=== PATIENT | male | born 1970 | race Caucasian/White ===

== ENCOUNTER 2023-01-31 17:10 | Inpatient (IN) | payer OTHER ==
[~2023-01-31] VITALS: Ht 175.3 cm; Wt 86.2 kg
[~2023-01-31 17:10] MED LIST: CEFUROXIME250 MG PO; FLOMAX0.4 MG PO; HYDROCODON-ACE1 EA11 PO; ONDANSETRON ODT4 MG PO
[2023-01-31] MEDS ORDERED: SODIUM CHLORIDE 0.9% 1000ML 1,000 ML IV STA (17:29)
[2023-01-31] MEDS ORDERED: ONDANSETRON HCL INJ 2MG/ML 2ML 2 MG/ML VIAL IV STA (17:34)
[2023-01-31 17:41] LABS: BASOPHILS # (AUTO) 0.1 (0.0-0.1); BASOPHILS % 0.4 % (0.0-1.0); EOSINOPHILS % 0.3 % (0.0-6.0); HEMATOCRIT 40.8 % (38.2-49.6); LYMPHOCYTES # (AUTO) 0.9 (1.0-3.2); LYMPHOCYTES % 5.5 % (18.0-39.1); MEAN CORPUSCULAR HEMOGLOBIN 30.3 pg (28-32); MEAN CORPUSCULAR HGB CONC 34.3 g/dL (31-35); MEAN CORPUSCULAR VOLUME 88.3 fL (81-99); MONOCYTES # (AUTO) 1.1 (0.2-0.8); NEUTROPHILS # (AUTO) 13.3 (2.1-6.9); NEUTROPHILS % 86.4 % (38.7-80.0); PLATELET COUNT 207 x10e3/uL (140-360); RED BLOOD COUNT 4.62 x10e6/uL (4.3-5.7); RED CELL DISTRIBUTION WIDTH 11.8 % (11.7-14.4)
[2023-01-31] MEDS ORDERED: Morphine 4mg INJECTION 4 MG/ML INJ IV ONE (17:45)
[2023-01-31 18:04] LABS: ALBUMIN 4.1 g/dL (3.5-5.0); ALBUMIN/GLOBULIN RATIO 1.2 (0.8-2.0); ANION GAP 15.4 mmol/L (8-16); CALCIUM 9.9 mg/dL (8.4-10.2); CREATININE, SERUM 1.81 mg/dL (0.72-1.25); POTASSIUM 4.4 mmol/L (3.5-5.1)
[2023-01-31] MEDS ORDERED: SODIUM CHLORIDE FLUSH 10 ML SYR INJ PRN (19:45)
[2023-01-31 20:05] VITALS: PULSE 90; RESP 20; O2SAT 98
[2023-01-31] MEDS: SODIUM CHLORIDE 0.9% 1000ML 1,000 ML IV SCH (20:50)
[2023-01-31] MEDS ORDERED: SIMETHICONE 80 MG CHEW PO PRN (22:30)
[2023-02-01] VITALS (12 sets, daily range): BP systolic 120–146; BP diastolic 83–98; PULSE 65–94; RESP 16–20; TEMP 98.1–98.8; O2SAT 65–99
[2023-02-01] MEDS: ONDANSETRON HCL INJ 2MG/ML 2ML 2 MG/ML VIAL IV PRN ×2 (00:21→13:03)
[2023-02-01] MEDS: Morphine 4mg INJECTION 4 MG/ML INJ IV PRN ×3 (00:22→21:14)
[2023-02-01 04:56] LABS: BASOPHILS # (AUTO) 0.1 (0.0-0.1); BASOPHILS % 0.5 % (0.0-1.0); EOSINOPHILS # (AUTO) 0.1 (0.0-0.4); EOSINOPHILS % 1.4 % (0.0-6.0); HEMATOCRIT 37.9 % (38.2-49.6); HEMOGLOBIN 12.6 g/dL (14.0-18.0); LYMPHOCYTES # (AUTO) 2.1 (1.0-3.2); LYMPHOCYTES % 21.8 % (18.0-39.1); MEAN CORPUSCULAR HEMOGLOBIN 30.4 pg (28-32); MEAN CORPUSCULAR HGB CONC 33.2 g/dL (31-35); MEAN CORPUSCULAR VOLUME 91.3 fL (81-99); MONOCYTES # (AUTO) 1.2 (0.2-0.8); MONOCYTES % 12.3 % (4.4-11.3); NEUTROPHILS % 63.4 % (38.7-80.0); PLATELET COUNT 162 x10e3/uL (140-360); RED BLOOD COUNT 4.15 x10e6/uL (4.3-5.7); RED CELL DISTRIBUTION WIDTH 11.7 % (11.7-14.4)
[2023-02-01 05:16] LABS: ANION GAP 11.9 mmol/L (8-16); CALCIUM 8.9 mg/dL (8.4-10.2); CREATININE, SERUM 1.56 mg/dL (0.72-1.25); POTASSIUM 3.9 mmol/L (3.5-5.1)
[2023-02-01 05:52] LABS: ALBUMIN 3.3 g/dL (3.5-5.0); BILIRUBIN,DIRECT 0.2 mg/dL (0.0-0.5)
[2023-02-01] MEDS: SODIUM CHLORIDE 0.9% 1000ML 1,000 ML IV SCH ×3 (05:59→21:13)
[2023-02-01] MEDS ORDERED: ACETAMINOPHEN 325 MG TAB PO PRN (06:45)
[2023-02-01] MEDS: TAMSULOSIN HCL 0.4 MG CAP PO SCH (08:34)
[2023-02-01] MEDS: FAMOTIDINE 20 MG TAB PO SCH ×2 (08:34→16:25)
[2023-02-01 13:43] LABS: CLARITY,URINE CLEAR (CLEAR); COLOR,URINE YELLOW (YELLOW); KETONES,URINE NEGATIVE (NEGATIVE); LEUKOCYTE ESTERASE ,URINE NEGATIVE (NEGATIVE); NITRITE,URINE NEGATIVE (NEGATIVE); PROTEIN,URINE DIPSTICK NEGATIVE (NEGATIVE); RBC,URINE 0-5 /HPF (0-5); URINE UROBILINOGEN 0.2 mg/dL (0.2 - 1); WBC,URINE (MAN) 0-5 /HPF (0-5)
[2023-02-01] MEDS: MELATONIN 3 MG TAB PO PRN (21:14)
[2023-02-02] VITALS (7 sets, daily range): BP systolic 121–145; BP diastolic 65–91; PULSE 70–91; RESP 18–19; TEMP 98.2–99; O2SAT 96–99
[2023-02-02] MEDS: Morphine 4mg INJECTION 4 MG/ML INJ IV PRN ×2 (03:37→21:31)
[2023-02-02] MEDS: SODIUM CHLORIDE 0.9% 1000ML 1,000 ML IV SCH ×3 (04:42→21:31)
[2023-02-02 04:58] LABS: BASOPHILS # (AUTO) 0.1 (0.0-0.1); BASOPHILS % 0.8 % (0.0-1.0); EOSINOPHILS # (AUTO) 0.3 (0.0-0.4); EOSINOPHILS % 3.1 % (0.0-6.0); HEMATOCRIT 42.3 % (38.2-49.6); HEMOGLOBIN 13.8 g/dL (14.0-18.0); LYMPHOCYTES # (AUTO) 1.9 (1.0-3.2); LYMPHOCYTES % 20.6 % (18.0-39.1); MEAN CORPUSCULAR HEMOGLOBIN 30.5 pg (28-32); MEAN CORPUSCULAR HGB CONC 32.6 g/dL (31-35); MEAN CORPUSCULAR VOLUME 93.6 fL (81-99); MONOCYTES # (AUTO) 0.8 (0.2-0.8); MONOCYTES % 8.6 % (4.4-11.3); NEUTROPHILS # (AUTO) 5.9 (2.1-6.9); PLATELET COUNT 152 x10e3/uL (140-360); RED BLOOD COUNT 4.52 x10e6/uL (4.3-5.7); RED CELL DISTRIBUTION WIDTH 11.8 % (11.7-14.4)
[2023-02-02 05:20] LABS: CALCIUM 9.5 mg/dL (8.4-10.2); CREATININE, SERUM 1.64 mg/dL (0.72-1.25)
[2023-02-02] MEDS: FAMOTIDINE 20 MG TAB PO SCH ×2 (06:30→16:30)
[2023-02-02] MEDS: TAMSULOSIN HCL 0.4 MG CAP PO SCH (08:57)
[2023-02-02] MEDS: ONDANSETRON HCL INJ 2MG/ML 2ML 2 MG/ML VIAL IV PRN (21:30)
[2023-02-02] MEDS: MELATONIN 3 MG TAB PO PRN (21:31)
[2023-02-03] VITALS (8 sets, daily range): BP systolic 117–177; BP diastolic 77–94; PULSE 69–86; RESP 16–20; TEMP 97.8–98.5; O2SAT 95–99
[2023-02-03] MEDS: SODIUM CHLORIDE 0.9% 1000ML 1,000 ML IV SCH ×3 (04:43→20:05)
[2023-02-03] MEDS: TAMSULOSIN HCL 0.4 MG CAP PO SCH (09:07)
[2023-02-03] MEDS: FAMOTIDINE 20 MG TAB PO SCH ×2 (09:07→17:10)
[2023-02-03] MEDS: DOCUSATE SODIUM 100 MG CAP PO PRN ×2 (09:07→17:20)
[2023-02-03] MEDS: ACETAMINOPHEN/CODEINE 300MG - 30MG TAB PO PRN ×3 (10:36→20:05)
[2023-02-03 10:57] LABS: ANION GAP 14.6 mmol/L (8-16); CALCIUM 9.7 mg/dL (8.4-10.2); CREATININE, SERUM 1.7 mg/dL (0.72-1.25); POTASSIUM 4.6 mmol/L (3.5-5.1)
[2023-02-03] MEDS: Morphine 4mg INJECTION 4 MG/ML INJ IV PRN ×3 (13:42→23:05)
[2023-02-03] MEDS ORDERED: BISACODYL 10 MG SUPP PR ONE (17:50)
[2023-02-03] MEDS: MELATONIN 3 MG TAB PO PRN (23:04)
[2023-02-04 00:08] VITALS: BP 150/88; PULSE 92; RESP 17; TEMP 97.8; O2SAT 98
[2023-02-04] MEDS: SODIUM CHLORIDE 0.9% 1000ML 1,000 ML IV SCH ×2 (04:00→10:22)
[2023-02-04 04:13] VITALS: BP 133/77; PULSE 79; RESP 17; TEMP 97.5; O2SAT 98
[2023-02-04 06:20] LABS: CALCIUM 9.4 mg/dL (8.4-10.2); CREATININE, SERUM 1.55 mg/dL (0.72-1.25)
[2023-02-04] MEDS ORDERED: ACETAMINOPHEN 1000 MG/100 ML 100 ML IV ONE (06:36)
[2023-02-04] MEDS: FAMOTIDINE 20 MG TAB PO SCH (07:30)
[2023-02-04] MEDS: METOPROLOL TARTRATE 25 MG TAB PO SCH ×2 (08:00→14:00)
[2023-02-04] MEDS ORDERED: IOPAMIDOL 610MG/1ML 300 MG/ML VIAL IV ONE (08:08)
[2023-02-04 08:27] VITALS: BP 147/87; PULSE 81; RESP 18; TEMP 99.5; O2SAT 98
[2023-02-04] MEDS: TAMSULOSIN HCL 0.4 MG CAP PO SCH (09:00)
[2023-02-04 10:23] VITALS: BP 129/88; PULSE 74; RESP 19; TEMP 97.8; O2SAT 98
[2023-02-04 10:27] VITALS: BP 129/88; PULSE 74; RESP 19; TEMP 97.8; O2SAT 98
[2023-02-04 12:40] VITALS: BP 142/85; PULSE 91; RESP 17; TEMP 98.6; O2SAT 98
[2023-02-04] MEDS ORDERED: SEVOFLURANE INHAL SOLN 250 ML PEN BTL ONE (12:57)
[2023-02-04] MEDS ORDERED: EPHEDRINE SULFATE INJ 50 MG/ML VIAL ONE (12:57)
[2023-02-04] MEDS ORDERED: DEXAMETHASONE SOD PHOS INJ 4 MG/ML SDV ONE (12:57)
[2023-02-04] MEDS ORDERED: PROPOFOL IV EMULSION 10 MG/ML 20 ML VIAL ONE (12:57)
[2023-02-04] MEDS ORDERED: POVIDONE IODINE 0.05% 0.05 % ML PO ONE (12:57)
[2023-02-04] MEDS ORDERED: ONDANSETRON HCL INJ 2MG/ML 2ML 2 MG/ML VIAL ONE (12:57)
[2023-02-04] MEDS ORDERED: LIDOCAINE HCL 2% LOCAL INJ 5 ML SDV VIAL INJ ONE (12:57)
[2023-02-04] MEDS ORDERED: TYLENOL 3 PO (13:15)
[2023-02-04] MEDS ORDERED: LEVOFLOXACIN250 MG PO (13:16)
[2023-02-04] MEDS: ACETAMINOPHEN/CODEINE 300MG - 30MG TAB PO PRN (14:26)
== END 2023-02-04 14:34 | disposition home or self-care (01) | DRG 661 ==
LOC: ER 17:19 → ERHOLD 19:45 → MED/SURG 02-01 02:06
PROVIDERS: ADMIT Internal Medicine; ATTEND Internal Medicine
PROC: 02HV33Z Insertion of Infusion Device into Superior Vena Cava, Percutaneous Approach (ICD-10-PCS; principal; 2023-02-02)
PROC: 0T768DZ Dilation of Right Ureter with Intraluminal Device, Via Natural or Artificial Opening Endoscopic (ICD-10-PCS; 2023-02-04)
DX: N13.2 Hydronephrosis with renal and ureteral calculous obstruction (principal); N17.9 Acute kidney failure, unspecified; I12.9 Hypertensive chronic kidney disease with stage 1 through stage 4 chronic kidney disease, or unspecified chronic kidney disease; N18.9 Chronic kidney disease, unspecified; N40.0 Benign prostatic hyperplasia without lower urinary tract symptoms; R74.01 Elevation of levels of liver transaminase levels; N28.1 Cyst of kidney, acquired; E86.0 Dehydration; Z20.822 Contact with and (suspected) exposure to COVID-19
CPT/HCPCS: 0223U; 36415; 74018; 74420; 76770; 80048; 80053; 80076; 81001; 83690; 85025; 87040; 94799; 99284; C1769; J0696; J1100; J2001; J2270; J2405; J7030

== ENCOUNTER → 2023-02-16 | Day surgery (SDC) | payer OTHER ==
[~2023-02-16] MED LIST changes: +ACETAMINOPHEN 1000 MG/100 ML 100 ML IV ONE; +CEFTRIAXONE 1 GM VIAL ONE; +FENTANYL CITRATE/PF 100MCG/2 ML INJ ONE; +IOPAMIDOL 610MG/1ML 300 MG/ML VIAL IV ONE; +KETOROLAC TROMETHAMINE 30 MG/ML VIAL ONE; +LACTATED RINGER'S 1,000 ML ONE; +LEVOFLOXACIN250 MG PO; +MIDAZOLAM HCL 2 MG/2 ML VIAL ONE; +TYLENOL 3 PO
[2023-02-16 13:41] VITALS: TEMP 97.3
[2023-02-16 14:40] VITALS: BP 140/83; PULSE 75; RESP 16; O2SAT 97
== END | disposition home or self-care (01) ==
LOC: OR 10:55
PROVIDERS: ATTEND Urology
DX: N20.1 Calculus of ureter (principal); N13.30 Unspecified hydronephrosis; N13.5 Crossing vessel and stricture of ureter without hydronephrosis; N35.912 Unspecified bulbous urethral stricture, male; N40.1 Benign prostatic hyperplasia with lower urinary tract symptoms; N39.0 Urinary tract infection, site not specified; K80.20 Calculus of gallbladder without cholecystitis without obstruction; Z46.6 Encounter for fitting and adjustment of urinary device; Z01.810 Encounter for preprocedural cardiovascular examination; Z87.891 Personal history of nicotine dependence
CPT/HCPCS: 52356; 74420; 93005; C1758; C1769; C1874; J0131; J0696; J1885; J7121; Q9967; J2250